=== PATIENT | male | born 1950 | race Caucasian/White ===

== ENCOUNTER 2020-01-07 10:47 | Outpatient (REF) | payer MEDICARE, SELFPAY ==
[2020-01-07 11:01] LABS: MANUAL DIFF FLAG NO
[2020-01-07 11:05] LABS: Basophils Percent Auto 0.7 % (0-2); Eosinophils Absolute Auto 0.3 X10*3/uL (0.0-0.4); Eosinophils Percent Auto 6.1 % (0-4); Hemoglobin 14.2 g/dl (14.0-18.0); Lymphocytes Absolute Auto 1.1 X10*3/uL (1.2-4.9); Lymphocytes Percent Auto 26.8 % (20-40); Mean Corpuscular HGB Conc 33.8 g/dl (31.0-36.0); Mean Corpuscular Hemoglobin 32.3 pg (27.0-33.0); Mean Corpuscular Volume 95.7 fL (80-98); Mean Platelet Volume 8.8 fL (9.4-12.4); Monocytes Absolute Auto 0.5 X10*3/uL (0.1-1.2); Monocytes Percent Auto 11.4 % (2-11); Neutrophils Absolute Auto 2.3 X10*3/uL (2.0-8.3); Platelet Count 178 X10*3/uL (160-400); Red Blood Count 4.39 X10*6/uL (4.60-5.80); Red Cell Distribution Width 13.8 % (11.0-16.0); White Blood Count 4.1 X10*3/uL (4.8-10.8)
[2020-01-07 11:52] LABS: Ferritin 13 ng/mL (20-250)
[2020-01-07 11:57] LABS: Alanine Aminotransferase 12 U/L (0-40); Albumin Level 4.4 g/dL (3.5-5.0); Alkaline Phosphatase 51 U/L (39-117); Anion Gap 10 (12-20); Aspartate Amino Transferase 23 U/L (5-37); Bilirubin Total 0.7 mg/dL (0.0-1.0); Blood Urea Nitrogen 25 mg/dL (9-16); Calcium 8.8 mg/dL (8.4-10.2); Carbon Dioxide 30 mmol/L (22-29); Chloride 104 mmol/L (96-108); Estimated Glomerular Filt Rate > 60; Glucose Random 56 mg/dL (60-115); Iron 138 mcg/dL (45-160); Percent Iron Saturation 36 % (15-50); Potassium 4.3 mmol/l (3.3-5.1); Sodium 140 mmol/L (135-145); Total Iron Binding Capacity 385 mcg/dL (228-428); Total Protein 6.8 g/dL (6.5-8.0); Unsaturated Iron Binding 247 ug/dL
--- NOTE | 2020-01-07 12:06 | MHC.HEMONC ---
Patient seen in therapeutic phlebotomy. glucose 56. Patient called lm to call office back ? if he ate food and how he is feeling. Dr. Cochran made aware of value. Awaiting call back from patient. Labs to be sent to pcp.
== END 2020-01-07 10:48 | disposition home or self-care (01) ==
LOC: HO.BBR 10:47
PROVIDERS: PCP Family Medicine; Visit Provider Internal Medicine Medical Oncology
DX: E83.110 Hereditary hemochromatosis (principal)
CPT/HCPCS: 36415; 80053; 82728; 83540; 85025; 99195

== ENCOUNTER → 2020-03-02 10:42 | Outpatient (BNV) | payer MEDICARE, SELFPAY | PROVIDERS: PCP Family Medicine; Visit Provider Internal Medicine Medical Oncology | DX: E83.119 Hemochromatosis, unspecified (principal) | CPT/HCPCS: 99212; 99213 ==

== ENCOUNTER 2020-03-17 11:08 | Outpatient (REF) | payer MEDICARE, SELFPAY | END 2020-03-17 11:09 | disposition home or self-care (01) | LOC: HO.BBR 11:08 | PROVIDERS: Visit Provider Internal Medicine Medical Oncology | DX: Z13.89 Encounter for screening for other disorder (principal) ==

== ENCOUNTER 2020-03-17 12:08 | Outpatient (REF) | payer SELFPAY ==
[2020-03-17 14:02] LABS: Cholesterol 211 mg/dL
== END 2020-03-17 12:09 | disposition home or self-care (01) ==
LOC: HO.LNC 12:08
PROVIDERS: Visit Provider Pathology Anatomic Pathology & Clinical Pathology
DX: Z13.89 Encounter for screening for other disorder (principal)
CPT/HCPCS: 36415; 82465

== ENCOUNTER 2020-06-02 11:12 | Outpatient (REF) | payer MEDICARE, SELFPAY ==
[2020-06-02 11:37] LABS: MANUAL DIFF FLAG NO
[2020-06-02 11:39] LABS: Basophils Percent Auto 0.5 % (0-2); Eosinophils Absolute Auto 0.2 X10*3/uL (0.0-0.4); Eosinophils Percent Auto 4.6 % (0-4); Hematocrit 41.5 % (42-52); Hemoglobin 13.7 g/dl (14.0-18.0); Imm Gran Abs Auto 0.02 X10*3/uL (0.00-0.03); Imm Gran Pct Auto 0.5 % (0.0-0.4); Lymphocytes Percent Auto 22.1 % (20-40); Mean Corpuscular Hemoglobin 32.5 pg (27.0-33.0); Mean Corpuscular Volume 98.3 fL (80-98); Monocytes Absolute Auto 0.4 X10*3/uL (0.1-1.2); Monocytes Percent Auto 9.4 % (2-11); Neutrophils Absolute Auto 2.7 X10*3/uL (2.0-8.3); Neutrophils Percent Auto 62.9 % (45-73); Platelet Count 174 X10*3/uL (160-400); Red Blood Count 4.22 X10*6/uL (4.60-5.80); Red Cell Distribution Width 13.2 % (11.0-16.0); White Blood Count 4.4 X10*3/uL (4.8-10.8)
[2020-06-02 12:05] LABS: Iron 95 mcg/dL (45-160); Percent Iron Saturation 28 % (15-50); Total Iron Binding Capacity 345 mcg/dL (228-428); Unsaturated Iron Binding 250 ug/dL
[2020-06-02 12:26] LABS: Ferritin 10 ng/mL (20-250)
== END 2020-06-02 11:13 | disposition home or self-care (01) ==
LOC: HO.BBR 11:12
PROVIDERS: PCP Family Medicine; Visit Provider Internal Medicine Medical Oncology
DX: E83.110 Hereditary hemochromatosis (principal)
CPT/HCPCS: 36415; 82728; 83540; 85025

== ENCOUNTER 2020-08-11 11:06 | Outpatient (REF) | payer MEDICARE, SELFPAY ==
[2020-08-11 11:20] LABS: MANUAL DIFF FLAG NO
[2020-08-11 11:24] LABS: Basophils Percent Auto 0.5 % (0-2); Eosinophils Absolute Auto 0.2 X10*3/uL (0.0-0.4); Eosinophils Percent Auto 4.6 % (0-4); Hematocrit 41.6 % (42-52); Hemoglobin 13.8 g/dl (14.0-18.0); Imm Gran Abs Auto 0.01 X10*3/uL (0.00-0.03); Imm Gran Pct Auto 0.2 % (0.0-0.4); Lymphocytes Absolute Auto 1.2 X10*3/uL (1.2-4.9); Lymphocytes Percent Auto 26.4 % (20-40); Mean Corpuscular HGB Conc 33.2 g/dl (31.0-36.0); Mean Corpuscular Hemoglobin 32.7 pg (27.0-33.0); Mean Corpuscular Volume 98.6 fL (80-98); Mean Platelet Volume 9.1 fL (9.4-12.4); Monocytes Absolute Auto 0.5 X10*3/uL (0.1-1.2); Monocytes Percent Auto 11.6 % (2-11); Neutrophils Absolute Auto 2.5 X10*3/uL (2.0-8.3); Neutrophils Percent Auto 56.7 % (45-73); Platelet Count 179 X10*3/uL (160-400); Red Blood Count 4.22 X10*6/uL (4.60-5.80); White Blood Count 4.4 X10*3/uL (4.8-10.8)
[2020-08-11 11:56] LABS: Iron 107 mcg/dL (45-160); Percent Iron Saturation 32 % (15-50); Total Iron Binding Capacity 336 mcg/dL (228-428); Unsaturated Iron Binding 229 ug/dL
[2020-08-11 12:19] LABS: Ferritin 21 ng/mL (20-250)
== END 2020-08-11 11:07 | disposition home or self-care (01) ==
LOC: HO.BBR 11:06
PROVIDERS: Visit Provider Internal Medicine Medical Oncology
DX: E83.110 Hereditary hemochromatosis (principal)
CPT/HCPCS: 36415; 82728; 83540; 85025

== ENCOUNTER 2020-10-20 11:02 | Outpatient (REF) | payer MEDICARE, SELFPAY ==
[2020-10-20 11:20] LABS: MANUAL DIFF FLAG NO
[2020-10-20 11:23] LABS: Basophils Percent Auto 0.4 % (0-2); Eosinophils Absolute Auto 0.2 X10*3/uL (0.0-0.4); Eosinophils Percent Auto 3.6 % (0-4); Hematocrit 39.8 % (42-52); Hemoglobin 13.4 g/dl (14.0-18.0); Imm Gran Abs Auto 0.01 X10*3/uL (0.00-0.03); Imm Gran Pct Auto 0.2 % (0.0-0.4); Lymphocytes Absolute Auto 0.9 X10*3/uL (1.2-4.9); Lymphocytes Percent Auto 18.9 % (20-40); Mean Corpuscular HGB Conc 33.7 g/dl (31.0-36.0); Mean Corpuscular Hemoglobin 32.8 pg (27.0-33.0); Mean Corpuscular Volume 97.5 fL (80-98); Mean Platelet Volume 8.6 fL (9.4-12.4); Monocytes Absolute Auto 0.6 X10*3/uL (0.1-1.2); Monocytes Percent Auto 11.7 % (2-11); Neutrophils Absolute Auto 3.1 X10*3/uL (2.0-8.3); Neutrophils Percent Auto 65.2 % (45-73); Platelet Count 179 X10*3/uL (160-400); Red Blood Count 4.08 X10*6/uL (4.60-5.80); Red Cell Distribution Width 13.2 % (11.0-16.0); White Blood Count 4.7 X10*3/uL (4.8-10.8)
[2020-10-20 12:21] LABS: Ferritin 14 ng/mL (20-250); Iron 62 mcg/dL (45-160); Percent Iron Saturation 19 % (15-50); Total Iron Binding Capacity 330 mcg/dL (228-428); Unsaturated Iron Binding 268 ug/dL
== END 2020-10-20 11:03 | disposition home or self-care (01) ==
LOC: HO.BBR 11:02
PROVIDERS: Visit Provider Internal Medicine Medical Oncology
DX: E83.110 Hereditary hemochromatosis (principal)
CPT/HCPCS: 36415; 82728; 83540; 85025

== ENCOUNTER 2020-12-29 10:35 | Outpatient (REF) | payer MEDICARE, SELFPAY ==
[2020-12-29 10:49] LABS: MANUAL DIFF FLAG NO
[2020-12-29 10:54] LABS: Basophils Percent Auto 0.5 % (0-2); Eosinophils Absolute Auto 0.3 X10*3/uL (0.0-0.4); Eosinophils Percent Auto 7.1 % (0-4); Hematocrit 44.5 % (42-52); Hemoglobin 14.7 g/dl (14.0-18.0); Lymphocytes Percent Auto 26.7 % (20-40); Mean Corpuscular Hemoglobin 31.8 pg (27.0-33.0); Mean Corpuscular Volume 96.3 fL (80-98); Mean Platelet Volume 8.8 fL (9.4-12.4); Monocytes Absolute Auto 0.4 X10*3/uL (0.1-1.2); Monocytes Percent Auto 11.4 % (2-11); Neutrophils Absolute Auto 2.1 X10*3/uL (2.0-8.3); Neutrophils Percent Auto 54.3 % (45-73); Platelet Count 181 X10*3/uL (160-400); Red Blood Count 4.62 X10*6/uL (4.60-5.80); Red Cell Distribution Width 13.1 % (11.0-16.0); White Blood Count 3.8 X10*3/uL (4.8-10.8)
[2020-12-29 11:30] LABS: Iron 88 mcg/dL (45-160); Percent Iron Saturation 22 % (15-50); Total Iron Binding Capacity 407 mcg/dL (228-428); Unsaturated Iron Binding 319 ug/dL
[2020-12-29 11:45] LABS: Ferritin 13 ng/mL (20-250)
== END 2020-12-29 10:36 | disposition home or self-care (01) ==
LOC: HO.BBR 10:35
PROVIDERS: PCP Family Medicine; Visit Provider Internal Medicine Medical Oncology
DX: E83.110 Hereditary hemochromatosis (principal)
CPT/HCPCS: 36415; 82728; 83540; 85025

== ENCOUNTER 2021-03-20 10:58 | Outpatient (REF) | payer MEDICARE, SELFPAY | END 2021-03-20 10:59 | disposition home or self-care (01) | LOC: HO.BBR 10:58 | PROVIDERS: Visit Provider Internal Medicine Medical Oncology | DX: Z13.89 Encounter for screening for other disorder (principal) ==

== ENCOUNTER 2021-05-29 10:58 | Outpatient (REF) | payer MEDICARE, SELFPAY ==
[2021-05-29 12:22] LABS: Iron 97 mcg/dL (45-160); Percent Iron Saturation 27 % (15-50); Total Iron Binding Capacity 365 mcg/dL (228-428); Unsaturated Iron Binding 268 ug/dL
[2021-05-29 12:45] LABS: Ferritin 17 ng/mL (20-250)
== END 2021-05-29 10:59 | disposition home or self-care (01) ==
LOC: HO.BBR 10:58
PROVIDERS: Visit Provider Internal Medicine Medical Oncology
DX: E83.110 Hereditary hemochromatosis (principal)
CPT/HCPCS: 36415; 82728; 83540

== ENCOUNTER 2021-08-07 11:09 | Outpatient (REF) | payer MEDICARE, SELFPAY ==
[2021-08-07 12:54] LABS: Iron 88 mcg/dL (45-160); Percent Iron Saturation 25 % (15-50); Total Iron Binding Capacity 349 mcg/dL (228-428); Unsaturated Iron Binding 261 ug/dL
[2021-08-07 13:14] LABS: Ferritin 21 ng/mL (20-250)
== END 2021-08-07 11:10 | disposition home or self-care (01) ==
LOC: HO.BBR 11:09
PROVIDERS: Visit Provider Internal Medicine Medical Oncology
DX: E83.110 Hereditary hemochromatosis (principal)
CPT/HCPCS: 36415; 82728; 83540

== ENCOUNTER 2021-10-23 09:58 | Outpatient (REF) | payer MEDICARE, SELFPAY ==
[2021-10-23 13:40] LABS: Iron 160 mcg/dL (45-160); Percent Iron Saturation 45 % (15-50); Total Iron Binding Capacity 359 mcg/dL (228-428); Unsaturated Iron Binding 199 ug/dL
[2021-10-23 14:01] LABS: Ferritin 31 ng/mL (20-250)
== END 2021-10-23 09:59 | disposition home or self-care (01) ==
LOC: HO.BBR 09:58
PROVIDERS: Visit Provider Internal Medicine Medical Oncology
DX: E83.110 Hereditary hemochromatosis (principal)
CPT/HCPCS: 36415; 82728; 83540

== ENCOUNTER 2022-01-09 09:02 | Outpatient (REF) | payer MEDICARE, SELFPAY ==
[2022-01-09 10:54] LABS: Ferritin 27 ng/mL (20-250); Iron 52 mcg/dL (45-160); Percent Iron Saturation 18 % (15-50); Total Iron Binding Capacity 282 mcg/dL (228-428); Unsaturated Iron Binding 230 ug/dL
== END 2022-01-09 09:03 | disposition home or self-care (01) ==
LOC: HO.BBR 09:02
PROVIDERS: Visit Provider Internal Medicine Medical Oncology
DX: E83.110 Hereditary hemochromatosis (principal)
CPT/HCPCS: 36415; 82728; 83540

== ENCOUNTER 2022-03-20 10:03 | Outpatient (REF) | payer MEDICARE, SELFPAY ==
[2022-03-20 10:27] LABS: MANUAL DIFF FLAG NO
[2022-03-20 10:28] LABS: Basophils Percent Auto 0.8 % (0-2); Eosinophils Absolute Auto 0.2 X10*3/uL (0.0-0.4); Eosinophils Percent Auto 5.9 % (0-4); Hematocrit 42.2 % (42.0-52.0); Hemoglobin 14.4 g/dl (14.0-18.0); Imm Gran Abs Auto 0.01 X10*3/uL (0.00-0.03); Imm Gran Pct Auto 0.3 % (0.0-0.4); Lymphocytes Absolute Auto 0.9 X10*3/uL (1.2-4.9); Lymphocytes Percent Auto 24.5 % (20-40); Mean Corpuscular HGB Conc 34.1 g/dl (31.0-36.0); Mean Corpuscular Hemoglobin 31.8 pg (27.0-33.0); Mean Corpuscular Volume 93.2 fL (80.0-98.0); Mean Platelet Volume 8.7 fL (9.4-12.4); Monocytes Absolute Auto 0.4 X10*3/uL (0.1-1.2); Neutrophils Absolute Auto 2.2 x10*3/uL (2.0-8.3); Neutrophils Percent Auto 58.5 % (45-73); Platelet Count 166 X10*3/uL (160-400); Red Blood Count 4.53 X10*6/uL (4.60-5.80); Red Cell Distribution Width 13.7 % (11.0-16.0); White Blood Count 3.7 X10*3/uL (4.8-10.8)
[2022-03-20 11:52] LABS: Iron 207 mcg/dL (45-160); Percent Iron Saturation 64 % (15-50); Total Iron Binding Capacity 321 mcg/dL (228-428); Unsaturated Iron Binding 114 ug/dL
[2022-03-20 11:58] LABS: Ferritin 43 ng/mL (20-250)
== END 2022-03-20 10:04 | disposition home or self-care (01) ==
LOC: HO.BBR 10:03
PROVIDERS: PCP Family Medicine; Visit Provider Internal Medicine Medical Oncology
DX: E83.110 Hereditary hemochromatosis (principal)
CPT/HCPCS: 36415; 82728; 83540; 85025

== ENCOUNTER 2022-05-29 09:57 | Outpatient (REF) | payer MEDICARE, SELFPAY ==
[2022-05-29 10:14] LABS: MANUAL DIFF FLAG NO
[2022-05-29 10:19] LABS: Basophils Percent Auto 0.8 % (0-2); Eosinophils Absolute Auto 0.3 X10*3/uL (0.0-0.4); Eosinophils Percent Auto 8.9 % (0-4); Hematocrit 43.2 % (42.0-52.0); Hemoglobin 14.8 g/dl (14.0-18.0); Imm Gran Abs Auto 0.01 X10*3/uL (0.00-0.03); Imm Gran Pct Auto 0.3 % (0.0-0.4); Lymphocytes Absolute Auto 0.8 X10*3/uL (1.2-4.9); Lymphocytes Percent Auto 20.8 % (20-40); Mean Corpuscular HGB Conc 34.3 g/dl (31.0-36.0); Mean Corpuscular Hemoglobin 33.7 pg (27.0-33.0); Mean Corpuscular Volume 98.4 fL (80.0-98.0); Mean Platelet Volume 8.8 fL (9.4-12.4); Monocytes Absolute Auto 0.4 X10*3/uL (0.1-1.2); Monocytes Percent Auto 9.6 % (2-11); Neutrophils Absolute Auto 2.3 x10*3/uL (2.0-8.3); Neutrophils Percent Auto 59.6 % (45-73); Platelet Count 173 X10*3/uL (160-400); Red Blood Count 4.39 X10*6/uL (4.60-5.80); Red Cell Distribution Width 12.7 % (11.0-16.0); White Blood Count 3.8 X10*3/uL (4.8-10.8)
[2022-05-29 11:28] LABS: Iron 175 mcg/dL (45-160); Percent Iron Saturation 53 % (15-50); Total Iron Binding Capacity 328 mcg/dL (228-428); Unsaturated Iron Binding 153 ug/dL
[2022-05-29 11:53] LABS: Ferritin 32 ng/mL (20-250)
== END 2022-05-29 09:58 | disposition home or self-care (01) ==
LOC: HO.BBR 09:57
PROVIDERS: Visit Provider Internal Medicine Medical Oncology
DX: E83.110 Hereditary hemochromatosis (principal)
CPT/HCPCS: 36415; 82728; 83540; 85025

== ENCOUNTER 2022-08-06 09:57 | Outpatient (REF) | payer MEDICARE, SELFPAY ==
[2022-08-06 10:18] LABS: MANUAL DIFF FLAG NO
[2022-08-06 10:20] LABS: Basophils Percent Auto 0.5 % (0-2); Eosinophils Absolute Auto 0.2 X10*3/uL (0.0-0.4); Eosinophils Percent Auto 5.8 % (0-4); Hematocrit 43.2 % (42.0-52.0); Hemoglobin 14.5 g/dl (14.0-18.0); Lymphocytes Percent Auto 24.1 % (20-40); Mean Corpuscular HGB Conc 33.6 g/dl (31.0-36.0); Mean Corpuscular Hemoglobin 33.3 pg (27.0-33.0); Mean Corpuscular Volume 99.1 fL (80.0-98.0); Mean Platelet Volume 8.9 fL (9.4-12.4); Monocytes Absolute Auto 0.4 X10*3/uL (0.1-1.2); Monocytes Percent Auto 10.6 % (2-11); Neutrophils Absolute Auto 2.5 x10*3/uL (2.0-8.3); Platelet Count 162 X10*3/uL (160-400); Red Blood Count 4.36 X10*6/uL (4.60-5.80); Red Cell Distribution Width 12.3 % (11.0-16.0); White Blood Count 4.2 X10*3/uL (4.8-10.8)
[2022-08-06 11:14] LABS: Iron 183 mcg/dL (45-160); Percent Iron Saturation 54 % (15-50); Total Iron Binding Capacity 342 mcg/dL (228-428); Unsaturated Iron Binding 159 ug/dL
[2022-08-06 11:31] LABS: Ferritin 28 ng/mL (20-250)
== END 2022-08-06 09:58 | disposition home or self-care (01) ==
LOC: HO.BBR 09:57
PROVIDERS: Visit Provider Internal Medicine Medical Oncology
DX: E83.110 Hereditary hemochromatosis (principal)
CPT/HCPCS: 36415; 82728; 83540; 85025

== ENCOUNTER 2022-10-15 09:52 | Outpatient (REF) | payer MEDICARE, SELFPAY ==
[2022-10-15 10:34] LABS: MANUAL DIFF FLAG NO
[2022-10-15 10:36] LABS: Basophils Percent Auto 0.6 % (0-2); Eosinophils Absolute Auto 0.2 X10*3/uL (0.0-0.4); Eosinophils Percent Auto 6.6 % (0-4); Hematocrit 39.6 % (42.0-52.0); Hemoglobin 13.3 g/dl (14.0-18.0); Imm Gran Abs Auto 0.01 X10*3/uL (0.00-0.03); Imm Gran Pct Auto 0.3 % (0.0-0.4); Lymphocytes Percent Auto 27.9 % (20-40); Mean Corpuscular HGB Conc 33.6 g/dl (31.0-36.0); Mean Corpuscular Hemoglobin 33.3 pg (27.0-33.0); Mean Platelet Volume 8.8 fL (9.4-12.4); Monocytes Absolute Auto 0.3 X10*3/uL (0.1-1.2); Monocytes Percent Auto 9.8 % (2-11); Neutrophils Absolute Auto 1.9 x10*3/uL (2.0-8.3); Neutrophils Percent Auto 54.8 % (45-73); Platelet Count 165 X10*3/uL (160-400); Red Cell Distribution Width 13.2 % (11.0-16.0); White Blood Count 3.5 X10*3/uL (4.8-10.8)
[2022-10-15 11:23] LABS: Iron 192 mcg/dL (45-160); Percent Iron Saturation 61 % (15-50); Total Iron Binding Capacity 316 mcg/dL (228-428); Unsaturated Iron Binding 124 ug/dL
[2022-10-15 11:41] LABS: Ferritin 20 ng/mL (20-250)
== END 2022-10-15 09:53 | disposition home or self-care (01) ==
LOC: HO.BBR 09:52
PROVIDERS: Visit Provider Internal Medicine Medical Oncology
DX: E83.110 Hereditary hemochromatosis (principal)
CPT/HCPCS: 36415; 82728; 83540; 85025

== ENCOUNTER 2022-12-24 09:59 | Outpatient (REF) | payer MEDICARE, SELFPAY ==
[2022-12-24 10:17] LABS: MANUAL DIFF FLAG NO
[2022-12-24 10:20] LABS: Basophils Percent Auto 0.5 % (0-2); Eosinophils Absolute Auto 0.3 X10*3/uL (0.0-0.4); Eosinophils Percent Auto 6.6 % (0-4); Hematocrit 42.7 % (42.0-52.0); Hemoglobin 14.4 g/dl (14.0-18.0); Imm Gran Abs Auto 0.01 X10*3/uL (0.00-0.03); Imm Gran Pct Auto 0.3 % (0.0-0.4); Lymphocytes Absolute Auto 0.9 X10*3/uL (1.2-4.9); Lymphocytes Percent Auto 23.3 % (20-40); Mean Corpuscular HGB Conc 33.7 g/dl (31.0-36.0); Mean Corpuscular Hemoglobin 32.9 pg (27.0-33.0); Mean Corpuscular Volume 97.5 fL (80.0-98.0); Mean Platelet Volume 8.7 fL (9.4-12.4); Monocytes Absolute Auto 0.4 X10*3/uL (0.1-1.2); Monocytes Percent Auto 10.6 % (2-11); Neutrophils Absolute Auto 2.2 x10*3/uL (2.0-8.3); Neutrophils Percent Auto 58.7 % (45-73); Platelet Count 169 X10*3/uL (160-400); Red Blood Count 4.38 X10*6/uL (4.60-5.80); Red Cell Distribution Width 13.1 % (11.0-16.0); White Blood Count 3.8 X10*3/uL (4.8-10.8)
[2022-12-24 11:22] LABS: Iron 227 mcg/dL (45-160); Percent Iron Saturation 66 % (15-50); Total Iron Binding Capacity 345 mcg/dL (228-428); Unsaturated Iron Binding 118 ug/dL
[2022-12-24 11:34] LABS: Ferritin 28 ng/mL (20-250)
== END 2022-12-24 10:00 | disposition home or self-care (01) ==
LOC: HO.BBR 09:59
PROVIDERS: Visit Provider Internal Medicine Medical Oncology
DX: E83.110 Hereditary hemochromatosis (principal)
CPT/HCPCS: 36415; 82728; 83540; 85025

== ENCOUNTER 2023-03-06 11:07 | Outpatient (REF) | payer MEDICARE, SELFPAY | END 2023-03-06 11:08 | disposition home or self-care (01) | LOC: HO.BBR 11:07 | PROVIDERS: Visit Provider Internal Medicine Medical Oncology | DX: E83.110 Hereditary hemochromatosis (principal) | CPT/HCPCS: 36415; 82728; 83540 ==

== ENCOUNTER 2023-05-15 10:03 | Outpatient (REF) | payer MEDICARE, SELFPAY ==
[2023-05-15 10:24] LABS: MANUAL DIFF FLAG NO
[2023-05-15 10:28] LABS: Basophils Percent Auto 0.8 % (0-2); Eosinophils Absolute Auto 0.3 X10*3/uL (0.0-0.4); Eosinophils Percent Auto 6.7 % (0-4); Hematocrit 42.1 % (42.0-52.0); Hemoglobin 14.2 g/dl (14.0-18.0); Lymphocytes Absolute Auto 1.1 X10*3/uL (1.2-4.9); Mean Corpuscular HGB Conc 33.7 g/dl (31.0-36.0); Mean Corpuscular Hemoglobin 32.3 pg (27.0-33.0); Mean Corpuscular Volume 95.7 fL (80.0-98.0); Mean Platelet Volume 8.7 fL (9.4-12.4); Monocytes Absolute Auto 0.4 X10*3/uL (0.1-1.2); Monocytes Percent Auto 11.5 % (2-11); Neutrophils Absolute Auto 1.9 x10*3/uL (2.0-8.3); Platelet Count 171 X10*3/uL (160-400); Red Cell Distribution Width 13.4 % (11.0-16.0); White Blood Count 3.7 X10*3/uL (4.8-10.8)
[2023-05-15 11:35] LABS: Ferritin 24 ng/mL (20-250); Iron 206 mcg/dL (45-160); Percent Iron Saturation 61 % (15-50); Total Iron Binding Capacity 339 mcg/dL (228-428); Unsaturated Iron Binding 133 ug/dL
== END 2023-05-15 10:04 | disposition home or self-care (01) ==
LOC: HO.BBR 10:03
PROVIDERS: Visit Provider Internal Medicine Medical Oncology
DX: E83.110 Hereditary hemochromatosis (principal)
CPT/HCPCS: 36415; 82728; 83540; 85025

== ENCOUNTER 2023-07-24 10:02 | Outpatient (REF) | payer MEDICARE, SELFPAY ==
[2023-07-24 10:22] LABS: MANUAL DIFF FLAG NO
[2023-07-24 10:24] LABS: Basophils Percent Auto 0.7 % (0-2); Eosinophils Absolute Auto 0.2 X10*3/uL (0.0-0.4); Eosinophils Percent Auto 4.7 % (0-4); Hemoglobin 13.9 g/dl (14.0-18.0); Imm Gran Abs Auto 0.01 X10*3/uL (0.00-0.03); Imm Gran Pct Auto 0.2 % (0.0-0.4); Lymphocytes Percent Auto 25.7 % (20-40); Mean Corpuscular HGB Conc 33.9 g/dl (31.0-36.0); Mean Corpuscular Hemoglobin 32.9 pg (27.0-33.0); Mean Corpuscular Volume 97.2 fL (80.0-98.0); Mean Platelet Volume 8.7 fL (9.4-12.4); Monocytes Absolute Auto 0.5 X10*3/uL (0.1-1.2); Monocytes Percent Auto 12.3 % (2-11); Neutrophils Absolute Auto 2.3 x10*3/uL (2.0-8.3); Neutrophils Percent Auto 56.4 % (45-73); Platelet Count 185 X10*3/uL (160-400); Red Blood Count 4.22 X10*6/uL (4.60-5.80); Red Cell Distribution Width 13.6 % (11.0-16.0); White Blood Count 4.1 X10*3/uL (4.8-10.8)
[2023-07-24 11:00] LABS: Iron 156 mcg/dL (45-160); Percent Iron Saturation 44 % (15-50); Total Iron Binding Capacity 351 mcg/dL (228-428); Unsaturated Iron Binding 195 ug/dL
[2023-07-24 11:15] LABS: Ferritin 29 ng/mL (20-250)
== END 2023-07-24 10:03 | disposition home or self-care (01) ==
LOC: HO.BBR 10:02
PROVIDERS: Visit Provider Internal Medicine Medical Oncology
DX: E83.110 Hereditary hemochromatosis (principal)
CPT/HCPCS: 36415; 82728; 83540; 85025

== ENCOUNTER 2023-10-06 10:07 | Outpatient (REF) | payer MEDICARE, SELFPAY ==
[2023-10-06 10:20] LABS: MANUAL DIFF FLAG NO
[2023-10-06 10:22] LABS: Basophils Percent Auto 0.7 % (0-2); Eosinophils Absolute Auto 0.2 X10*3/uL (0.0-0.4); Eosinophils Percent Auto 5.6 % (0-4); Hematocrit 41.3 % (42.0-52.0); Hemoglobin 14.2 g/dl (14.0-18.0); Imm Gran Abs Auto 0.01 X10*3/uL (0.00-0.03); Imm Gran Pct Auto 0.2 % (0.0-0.4); Lymphocytes Absolute Auto 0.9 X10*3/uL (1.2-4.9); Lymphocytes Percent Auto 22.4 % (20-40); Mean Corpuscular HGB Conc 34.4 g/dl (31.0-36.0); Mean Corpuscular Hemoglobin 33.2 pg (27.0-33.0); Mean Corpuscular Volume 96.5 fL (80.0-98.0); Mean Platelet Volume 8.3 fL (9.4-12.4); Monocytes Absolute Auto 0.3 X10*3/uL (0.1-1.2); Monocytes Percent Auto 8.3 % (2-11); Neutrophils Absolute Auto 2.6 x10*3/uL (2.0-8.3); Neutrophils Percent Auto 62.8 % (45-73); Platelet Count 152 X10*3/uL (160-400); Red Blood Count 4.28 X10*6/uL (4.60-5.80); Red Cell Distribution Width 13.3 % (11.0-16.0); White Blood Count 4.1 X10*3/uL (4.8-10.8)
[2023-10-06 11:15] LABS: Iron 144 mcg/dL (45-160); Percent Iron Saturation 44 % (15-50); Total Iron Binding Capacity 327 mcg/dL (228-428); Unsaturated Iron Binding 183 ug/dL
[2023-10-06 11:20] LABS: Ferritin 19 ng/mL (20-250)
== END 2023-10-06 10:08 | disposition home or self-care (01) ==
LOC: HO.BBR 10:07
PROVIDERS: Visit Provider Internal Medicine Medical Oncology
DX: E83.110 Hereditary hemochromatosis (principal)
CPT/HCPCS: 36415; 82728; 83540; 85025

== ENCOUNTER 2023-12-02 07:30 | Day surgery (SDC) | payer MEDICARE, SELFPAY ==
[2023-12-02 08:38] VITALS: BP 142/76; PULSE 56; RESP 18; TEMP 36.9; O2SAT 97; BMI 23.4
[2023-12-02] MEDS: Lactated Ringers 1,000 ML 100 ML IVCONT (09:01)
--- NOTE | 2023-12-02 09:50 | P.CONAN_ITS ---
Documented by User: Judy Aiken NP 12/01/23 09:35 HPI - Anesthesia Eval Consult details Narrative: 73yo M for Colonoscopy Hemochromatosis with therapeutic phlebs - last 10/06/23 [facility] Active Problems Active Problems: All Active Problems Hemochromatosis (Acute) Past Medical History Medical History Hemochromatosis associated with compound heterozygous mutation in HFE gene Family History Family History Father COPD (chronic obstructive pulmonary disease) Mother CHF (congestive heart failure) Sister Ovarian cancer Maternal Grandmother Bone cancer Surgical History Surgical History (Updated 12/02/23 @ 08:51 by Gladis Gentile RN) Hx of colonoscopy History of left knee surgery Social History Social History Household Members: Spouse Housing: House Are you a primary field care coordinator to a significant other at home: No Do you presently have visiting nurse or other home services: No Alcohol intake: current Alcohol intake frequency: holidays/special occasions only Alcohol type: wine Patient Tobacco Use Status: Never used Tobacco Have you been hit, kicked, punched, or otherwise hurt by someone within the past year? If so, by whom?: No Are you DNR?: No Advance Directives: No Advance Directives Information Provided: Yes service: No Current occupational status: retired Meds Allergies Allergy/AdvReac Type Severity Reaction Status Date / Time No Known Allergies Allergy Unverified 02/18/23 10:27 [No Known Allergies*] Home Medications ?Medication ?Instructions ?Recorded ?Confirmed ?Last Taken ?Type No Known Home Meds 12/02/23 12/02/23 Unknown History Assessment and Plan Assessment Anesthesia Assessment: Chart Reviewed Documented by User: Kathy Fiore DO 12/02/23 10:24 [facility] Past Medical History Medical History Hemochromatosis associated with compound heterozygous mutation in HFE gene Family History Family History Father COPD (chronic obstructive pulmonary disease) Mother CHF (congestive heart failure) Sister Ovarian cancer Maternal Grandmother Bone cancer Family history of problems with anesthesia: No Surgical History Surgical History (Updated 12/02/23 @ 08:51 by Gladis Gentile RN) Hx of colonoscopy History of left knee surgery History of Problems with Anesthesia: No Social History Social History Household Members: Spouse Housing: House Are you a primary field care coordinator to a significant other at home: No Do you presently have visiting nurse or other home services: No Alcohol intake: current Alcohol intake frequency: holidays/special occasions only Alcohol type: wine Patient Tobacco Use Status: Never used Tobacco Have you been hit, kicked, punched, or otherwise hurt by someone within the past year? If so, by whom?: No Are you DNR?: No Advance Directives: No Advance Directives Information Provided: Yes service: No Current occupational status: retired Meds Allergies Allergy/AdvReac Type Severity Reaction Status Date / Time No Known Allergies Allergy Unverified 02/18/23 10:27 [No Known Allergies*] Home Medications ?Medication ?Instructions ?Recorded ?Confirmed ?Last Taken ?Type No Known Home Meds 12/02/23 12/02/23 Unknown History Exam Exam Date and Time: 12/02/23 0950 Height,Weight and Vital Signs: Height 5 ft 9 in Weight 72.03 kg Vital Signs Temperature 98.5 F 12/02/23 08:38 Pulse Rate 56 12/02/23 08:38 Respiratory Rate 18 12/02/23 08:38 Blood Pressure 142/76 H 12/02/23 08:38 Pulse Oximetry 97 12/02/23 08:38 Oxygen Delivery Method Room Air 12/02/23 08:38 Temperature 98.5 F 12/02/23 08:38 Pulse Rate 56 12/02/23 08:38 Respiratory Rate 18 12/02/23 08:38 Blood Pressure 142/76 H 12/02/23 08:38 Pulse Oximetry 97 12/02/23 08:38 Oxygen Delivery Method Room Air 12/02/23 08:38 Airway Mallampati Class: I TM Dist: >3cm Neck ROM: Full Loose/Missing/Broken Teeth: No (patient denies any loose or broken teeth) Heart: S1S2 Lungs: CTAB Assessment and Plan Assessment Anesthesia Assessment: Anesthesia Plan Discussed and Chart Reviewed Final Anesthetic Review Family History of Problems with Anesthesia: No History of Problems with Anesthesia: No NPO: Yes ASA Class: II Final Preanesthetic Review: No Changes in Pt Med Stat, Meds/Allgs Chart Reviewed, Consent Obtained/Reviewed and Anes Risks/Benef Reviewed Patient Risk: Low Procedure Risk: Low Anesthetic Plan Anesthetic Plan: MAC: and Agree w/ Assess. and Plan Disposition: Standard PACU
--- NOTE | 2023-12-02 09:51 | MHC.SHP ---
Pre-Procedural Eval Section A - 24 Hr Update-Section A only Date of Service: 12/02/23 Section B - Complete if H&P > 30 days Chief Complaint: screening Details of Present Illness: see H&P no changes Relevant Family History (Specify if Yes): No Relevant Social History: None Present Medications: see Short Stay Collaborative assessment Medical History: No relevant PMH History of Previous Operations: No relevant previous surgery Allergies: Allergies Allergy/AdvReac Type Severity Reaction Status Date / Time No Known Allergies Allergy Unverified 02/18/23 10:27 [No Known Allergies*] Review of Systems Sugical H&P ROS: Negative: Constitution, Cardiovascular, Respiratory, Neurological, Psychiatric, Hem-Onc, Allergic/Immunologic, Gastrointestinal, Genitourinary, Musculoskeletal, Integumentary, Endocrine and Eyes/Ears/Nose/Throat Exam Surgical H&P Exam: Normal: HEENT, Normal: Heart, Normal: Lungs, Normal: Extremities, Normal: Abdomen, Normal: Skin and Normal: Neurological Plan Diagnosis/Plan: Unchanged I have reviewed the history and physical and performed a pertinent physical examination on my patient. No changes have occurred unless specified. Time Spent With Patient Time: Total time managing care of this patient today ____ minutes.
[2023-12-02 10:41] VITALS: BP 95/56; PULSE 53; RESP 12; TEMP 36.2; O2SAT 98
[2023-12-02 10:56] VITALS: BP 127/73; PULSE 60; RESP 15; O2SAT 98
--- NOTE | 2023-12-02 11:10 | OP_ITS ---
DATE OF SERVICE: 12/02/2023 SURGEON: Man Friedman MD INDICATIONS: Colon cancer screening and prior history of adenomatous colon polyps. PREOPERATIVE DIAGNOSIS: POSTOPERATIVE DIAGNOSIS: PROCEDURE PERFORMED: Colonoscopy to the terminal ileum with biopsy. ESTIMATED BLOOD LOSS: COMPLICATIONS: ANESTHESIA: Monitored anesthesia care. ASSISTANTS: SPECIMENS: DESCRIPTION OF PROCEDURE: A history and physical was performed. The risks and benefits of the procedure were explained to the patient and informed consent was obtained. The patient was placed in the left lateral decubitus position. A digital rectal exam was performed and was found to be normal. The Olympus pediatric video colonoscope was introduced into the rectum and advanced to the cecum. The cecum was identified by transillumination, palpation, and identification of ileocecal valve. Examination was performed and the scope was removed. He tolerated the procedure well and was returned to recovery area in stable condition. FINDINGS: The terminal ileum was briefly examined and appeared normal. The visualized colonic mucosa was normal. The quality of the prep was good. There were a few scattered diverticula throughout the colon. In the right colon, was a less than 5 mm sessile polyp, which was removed with a biopsy forceps. No other polyps were identified. Retroflexed examination showed internal hemorrhoids. IMPRESSION: Colon polyp. RECOMMENDATION: Follow up the biopsy results. MD ADAM Mejia/DEYANIRA / [id number]
[2023-12-02 11:11] VITALS: BP 125/80; PULSE 54; RESP 16; TEMP 36.3; O2SAT 100
== END 2023-12-02 11:27 | disposition home or self-care (01) ==
PROVIDERS: PCP Family Medicine; Visit Provider Internal Medicine Gastroenterology
PROC: 0DJD8ZZ Inspection of Lower Intestinal Tract, Via Natural or Artificial Opening Endoscopic (ICD-10-PCS; CPT 45378; principal; 2023-12-02 09:00)
DX: Z12.11 Encounter for screening for malignant neoplasm of colon (principal); D12.6 Benign neoplasm of colon, unspecified; K57.30 Diverticulosis of large intestine without perforation or abscess without bleeding; K64.8 Other hemorrhoids; Z86.0101 Personal history of adenomatous and serrated colon polyps
CPT/HCPCS: 45380; 88305; J2704

== ENCOUNTER 2023-12-17 10:57 | Outpatient (REF) | payer MEDICARE, SELFPAY ==
[2023-12-17 11:13] LABS: Basophils Percent Auto 0.8 % (0-2); Eosinophils Absolute Auto 0.2 X10*3/uL (0.0-0.4); Eosinophils Percent Auto 5.6 % (0-4); Hemoglobin 14.5 g/dl (14.0-18.0); Imm Gran Abs Auto 0.01 X10*3/uL (0.00-0.03); Imm Gran Pct Auto 0.3 % (0.0-0.4); Lymphocytes Percent Auto 25.4 % (20-40); MANUAL DIFF FLAG NO; Mean Corpuscular HGB Conc 33.7 g/dl (31.0-36.0); Mean Corpuscular Hemoglobin 32.5 pg (27.0-33.0); Mean Corpuscular Volume 96.4 fL (80.0-98.0); Mean Platelet Volume 8.7 fL (9.4-12.4); Monocytes Absolute Auto 0.5 X10*3/uL (0.1-1.2); Monocytes Percent Auto 12.2 % (2-11); Neutrophils Absolute Auto 2.2 x10*3/uL (2.0-8.3); Neutrophils Percent Auto 55.7 % (45-73); Platelet Count 190 X10*3/uL (160-400); Red Blood Count 4.46 X10*6/uL (4.60-5.80); Red Cell Distribution Width 13.6 % (11.0-16.0); White Blood Count 3.9 X10*3/uL (4.8-10.8)
[2023-12-17 12:31] LABS: Iron 206 mcg/dL (45-160); Percent Iron Saturation 58 % (15-50); Total Iron Binding Capacity 353 mcg/dL (228-428); Unsaturated Iron Binding 147 ug/dL
[2023-12-17 12:47] LABS: Ferritin 26 ng/mL (20-250)
== END 2023-12-17 10:58 | disposition home or self-care (01) ==
LOC: HO.BBR 10:57
PROVIDERS: PCP Family Medicine; Visit Provider Internal Medicine Medical Oncology
DX: E83.110 Hereditary hemochromatosis (principal)
CPT/HCPCS: 36415; 82728; 83540; 85025

== ENCOUNTER 2024-02-27 10:05 | Outpatient (REF) | payer MEDICARE, SELFPAY ==
--- OUTSIDE RECORDS SUMMARY | 2024-02-27 10:09 | XMS_ITS ---
Author Organization [facility] Address [address] [place] [address] Care Team Providers Care Assistant Executive Housekeeper Name Role Phone CARISA ANGELES III Primary Care Provider UnavailMan Villanueva Jr REASON FOR VISIT pathology Encounters Encounter Location Date Provider Diagnosis [facility] [address] [place] [address] 12/11/2023 Man Friedman Jr PLAN OF TREATMENT No Information
--- OUTSIDE RECORDS SUMMARY | 2024-02-27 10:10 | XMS_ITS ---
Author Organization [facility] Address [address] [place] [address] Care Team Providers Care Pile Trimmer Name Role Phone CARISA ANGELES III Primary Care Provider UnavailMan Villanueva Jr [phone] REASON FOR VISIT colon screening Encounters Encounter Location Date Provider Diagnosis [facility] [address] [place] [address] 10/13/2023 Man Friedman Jr PLAN OF TREATMENT No Information
--- OUTSIDE RECORDS SUMMARY | 2024-02-27 10:10 | XMS_ITS | Patient Health Record ---
Author Organization [facility] Address [address] [place] [address] Care Team Providers Care Electrical Manufacturing Technician Name Role Phone CARISA ANGELES III Primary Care Provider Man Cancino Jr Unavailable ALLERGIES No Known Allergies RESULTS Component Value Reference Range Notes Pathology Reviewed date:12/11/2023 11:11:36 AM Interpretation: Performing Lab:[facility], [address] [place] [phone] Notes/Report: REASON FOR REFERRAL No Information MEDICATIONS Medication SIG (Take, Route, Frequency, Duration) Notes Start Date End Date Status Vitamin B12 Active MiraLax (colon prep) 17 GM/SCOOP mixed with Gatorade or Crystal Light Orally begin at 5:00 p.m. the day before the procedure for 1 day 10/09/2023 Active IMMUNIZATIONS Vaccine Route Administration Date Status Comme nts Influenza Unknown 01/06/2018 Administered SOCIAL HISTORY Tobacco Use: Social History Observation Description Date Details (start date - stop date) Never Smoker NA - NA Sex Assigned At : Social History Observation Description Sex Assigned At Unknown Tobacco Use/Smoking Question Answer Notes Patient is a nonsmoker Alcohol Screen Question Answer Notes Did you have a drink contain ing alcohol in the past year? Yes How often did you have a dri nk containing alcohol in the past year? 4 or more times a week (4 points) How many drinks did you have on a typical day when you were drinking in the past year? 1 or 2 drinks (0 point) How often did you have 6 or more drinks on one occasion in the past year? Never (0 point) Points 4 Interpretation Positive PROBLEMS Problem Type ICD Code Onset Dates Problem Status W/U Status Risk SNOMED Code Notes Problem Colon cancer screening (Z12.11) Active confirmed 283121298 Problem Encounter for other preprocedural examination (Z01.818) Active confirmed 411370968 Problem Personal history of colonic polyps (Z86.010) Active confirmed 755528801 VITAL SIGNS Blood pressure diastolic 00 mm Hg 10/09/2023 Height 69 in 10/09/2023 Blood pressure systolic 00 mm Hg 10/09/2023 Weight 151 lbs 10/09/2023 BMI 22.30 kg/m2 10/09/2023 Encounters Encounter Location Date Provider Diagnosis [facility] [address] [place] [phone] 12/02/2023 Man Friedman Jr Colon cancer screening Z12.11 ; Personal history of colonic polyps Z86.010 and Colon polyps K63.5 [facility] [address] [place] [phone] 10/13/2023 Man Friedman Jr [facility] [address] [place] [phone] 10/09/2023 Man Friedman Jr Colon cancer screening Z12.11 and Personal history of colonic polyps Z86.010 [facility] [address] [place] [phone] 12/11/2023 Man Friedman Jr ASSESSMENTS Encounter Date Diagnosis Assessment Notes Treatment Notes Treatment Clinical Notes 12/02/2023 Colon cancer screening (ICD-10 - Z12.11) 12/02/2023 Personal history of colonic polyps (ICD-10 - Z86.010) 10/09/2023 Colon cancer screening (ICD-10 - Z12.11) Colonoscopy material was printed 10/09/2023 Personal history of colonic polyps (ICD-10 - Z86.010) 12/02/2023 Colon polyps (ICD-10 - K63.5) PLAN OF TREATMENT Future Test Test Name Order Date COLONOSCOPY 05/06/2018 COLONOSCOPY 10/09/2023 Insurance Providers Payer Name Payer Address Payer Phone Subscriber Number Group Number Insured Name Patient Relationship to Insured Coverage Start Date Coverage End Date [employer] MEDI COMPLETE (REFERRAL REQUIRED) [address] [address] [place], [place] [phone] [id number] CLOCK, WES Self - patient is the insured MEDICAL (GENERAL) HISTORY Medical History History ICD Code sciatica hemochromatosis Colonoscopy 2019, five-year followup due to personal history of colon polyps. Surgical History Surgery Date(Month/Year) left knee arthroscopy 2020
--- OUTSIDE RECORDS SUMMARY | 2024-02-27 10:10 | XMS_ITS ---
Author Organization [facility] Address [address] [place] [address] Care Team Providers Care Loading Supervisor Name Role Phone CARISA ANGELES III Primary Care Provider UnavailMan Villanueva Jr REASON FOR VISIT screening Encounters Encounter Location Date Provider Diagnosis [facility] [facility] [address] [place] [phone] 12/02/2023 Man Friedman Jr Colon cancer screening Z12.11 ; Personal history of colonic polyps Z86.010 and Colon polyps K63.5 ASSESSMENTS Encounter Date Diagnosis Assessment Notes Treatment Notes Treatment Clinical Notes 12/02/2023 Colon cancer screening (ICD-10 - Z12.11) 12/02/2023 Personal history of colonic polyps (ICD-10 - Z86.010) 12/02/2023 Colon polyps (ICD-10 - K63.5) PLAN OF TREATMENT No Information
== END 2024-02-27 10:06 | disposition home or self-care (01) ==
LOC: HO.BBR 10:05
PROVIDERS: Visit Provider Internal Medicine Medical Oncology
DX: Z13.89 Encounter for screening for other disorder (principal)

== ENCOUNTER 2024-05-07 10:01 | Outpatient (REF) | payer MEDICARE, SELFPAY ==
--- OUTSIDE RECORDS SUMMARY | 2024-05-07 11:11 | XMS_ITS | Patient Health Record ---
Author Organization [facility] Address [address] [place] [address] Care Team Providers Care Toll Ticket Clerk Name Role Phone CARISA ANGELES III Primary Care Provider Man Cancino Jr Unavailable Allergies No Known Allergies Results Component Value Reference Range Notes Pathology Reviewed date:12/11/2023 11:11:36 AM Interpretation: Performing Lab:[facility], [address] [place] [phone] Notes/Report: Name: JulioSarathWes Age/Sex: 73/M : 1950 Unit#: [id number] Attend Dr: Man Friedman MD Re12/02/23 Status : [facility] Location: [facility] Disch: SPEC : [id number] RECD : 12/02/23 STATUS: MARYSOL COOK NUM: [id number] JAY: 12/02/[address] [facility] [address]: Man Friedman MD ENTERED: 12/02/23 SP TYPE: Surgical OTHR DR: Carisa Angeles MD ORDERED: HE Stain/3, Gross Micro L4 Diagnosis Colon, right, polype ctomy: Fragments of sessile serrated lesion/polyp; negative for cytologic dysplasia. Clinical History Pre-Op Dx: Screening Post-Op Dx: Colon polyp Microscopic Description Microscopic sections reviewed. Material Received Polyp right colon Gross Description Received in formalin labeled ?polyp right colon? are 2 fragments of shah-white soft tissue measuring 0.3 and 0. 3 cm in greatest dimension which are wrapped in lens paper and entirely submitted for micros copic examination, 2 pieces in cassette [facility] Copies To: Man Friedman MD [facility] [address] [place] [address] [address] [place], [place] [id number] Carisa Angeles MD [address] [address] Signed (si gnature on file) Kevin Gonzales MD 12/03/23 1352 END OF REPORT Reason For Referral No Information Medications Medication SIG (Take, Route, Frequency, Duration) Notes Start Date End Date Status Vitamin B12 Active MiraLax (colon prep) 17 GM/SCOOP mixed with Gatorade or Crystal Light Orally begin at 5:00 p.m. the day before the procedure for 1 day 10/09/2023 Active Immunizations Vaccine Route Administration Date Status Comme nts Influenza Unknown 01/06/2018 Administered Social History Tobacco Use: Social History Observation Description Date Details (start date - stop date) Never Smoker NA - NA Tobacco Use/Smoking Question Answer Notes Patient is [...] Never (0 point) Points 4 Interpretation Positive Problems Problem Type SNOMED Code ICD Code Onset Dates Problem Status W/U Status Risk Notes Problem 646391646 Colon cancer screening (Z12.11) Active confirmed Problem 601479614 Personal history of colonic polyps (Z86.010) Active confirmed Problem 957743061 Encounter for other preprocedural examination (Z01.818) Active confirmed Vital Signs Blood pressure diastolic 00 mm Hg 10/09/2023 Height 69 in 10/09/2023 Blood pressure systolic 00 mm Hg 10/09/2023 Weight 151 lbs 10/09/2023 BMI 22.30 kg/m2 10/09/2023 Encounters Encounter Location Date Provider Diagnosis [facility] [place] Out[place] [address] [place] [phone] 12/02/2023 Man Friedman Jr Colon cancer screening Z12.11 ; Personal history of colonic polyps Z86.010 and Colon polyps K63.5 [facility] [address] [place] [phone] 10/09/2023 Man Friedman Jr Colon cancer screening Z12.11 and Personal history of colonic polyps Z86.010 [facility] [address] [place] [phone] 12/11/2023 aMn Friedman Jr Assessments Encounter Date Diagnosis (ICD Code) Assessment Notes Treatment Notes Treatment Clinical Notes Section Notes 12/02/2023 Colon cancer screening (ICD-10 - Z12.11) 12/02/2023 Personal history of colonic polyps (ICD-10 - Z86.010) 10/09/2023 Colon cancer screening (ICD-10 - Z12.11) Colonoscopy material was printed We discussed colonoscopy today. We discussed risks and benefits of the procedure today. He understands these and agrees to proceed. This will be scheduled at his convenience. 10/09/2023 Personal history of colonic polyps (ICD-10 - Z86.010) We discussed colonoscopy today. We discussed risks and benefits of the procedure today. He understands these and agrees to proceed. This will be scheduled at his convenience. 12/02/2023 Colon polyps (ICD-10 - K63.5) Plan Of Treatment Future Test Test Name Order Date COLONOSCOPY 05/06/2018 COLONOSCOPY 10/09/2023 Insurance Providers Payer Name Payer Address Payer Phone Subscriber Number Group Number Insured Name Patient Relationship to Insured Coverage Start Date Coverage End Date AARP MEDI COMPLETE (REFERRAL REQUIRED) [address] [address] [place] [address] [phone] [id number] JULIO, WES Self - patient is the insured Medical (General) History Medical History History ICD Code sciatica hemochromatosis Colonoscopy 2018, five-year followup due to personal history of colon polyps. Surgical History Surgery Date(Month/Year) left knee arthroscopy 2020
--- OUTSIDE RECORDS SUMMARY | 2024-05-07 11:12 | XMS_ITS ---
Author Organization [facility] Address [address] [place] [phone] Care Team Providers Care Salt Lifter Name Role Phone CARISA ANGELES III Primary Care Provider Man Cancino Jr REASON FOR VISIT screening Encounters Encounter Location Date Provider Diagnosis [facility] [place] [address] [place] [phone] 12/02/2023 Man Friedman Jr Colon cancer screening [...] Progress Notes * WES KIM LDOB: [birth year] (73 yo M)Acc No.[id number]:12/02/2023 COLON WITH MAC Patient:?SAMMY KIMANDREAS Clements Provider:?Man Friedman MD :1950???Age:73 Y???Sex:Male Filipe e:12/02/2023 Address:[address] [place], [place] Pcp:CARISA ANGELES III Subjective: * Chief Complaints: * ???1. Screening. * Medical History:? Objective: * Vitals:? Assessment: * Assessment: 1.?Colon cancer screening - Z12.11 (Primary)???2.?Personal history of colonic polyps - Z86.010???3.?Colon polyps - K63.5??? Plan: * Treatment: * Procedure Codes:?63160 COLON OSCOPY AND BIOPSY * Preventive Medicine:? ??LUDWIG Screening:?Colonoscopy?Was interval between colonoscopies three years or more??Yes,?Was last colonoscopy performed three or more years ago??Yes.? * * The named appointment provid er may or may not be the originator of this progress note, and it is not deemed complete until electronically signed by the appointment provider. Sign off status: Pending * Provider:?Man Friedman MD Date:?1 Generated for Kitty day/Maria Alejandra/Shaquilleitting on:?05/07/2024 11:12 AM EST
--- OUTSIDE RECORDS SUMMARY | 2024-05-07 11:12 | XMS_ITS ---
Author Organization [facility] Address [address] [place] [phone] Care Team Providers Care Pacs Administrator Name Role Phone CARISA ANGELES III Primary Care Provider Man Cancino Jr [phone] REASON FOR VISIT pathology Encounters Encounter Location Date Provider Diagnosis [facility] [address] [place] [phone] 12/11/2023 Man Friedman Jr Plan Of Treatment No Information Progress Notes * JULIO WES LDOB: [birth year] (73 yo M)Acc No.[id number]:12/11/2023 Patient:?SAMMY KIMANDREAS Clements :1950???Age:73 Y???Sex:Male Address:[address], [place], [address] * true * Date:? Generated for Elinai barb/Maria Alejandra/eTransmitting on:?05/07/2024 11:11 AM EST
--- OUTSIDE RECORDS SUMMARY | 2024-05-07 11:12 | XMS_ITS | Clinical Summary ---
Author Organization [employer] [facility] Address [address] [place] [address] Care Team Providers Care Piano Mover Name Role Phone Zachariah Joiner MD Primary Care Provider Allergies No known active allergies Medications No known medications Active Problems Problem Noted Date Diagnosed Date Hereditary hemochromatosis 10/30/2016 Family History Medical History Relation Name Comments COPD Father Relation Name Status Comments Father Social History Tobacco Use Types Packs/Day Years Used Date Smoking Tobacco: Never Smokeless Tobacco: Never Alcohol Use Standard Drinks/Week Comments No 0 (1 standard drink = 0.6 oz pur e alcohol) Sex and Gender Information Value Date Recorded Sex Assigned at Not on file Gender Identity Not on file Sexual Orientation Not on file Last Filed Vital Signs Vital Sign Reading Time Taken Comments Blood Pressure 129/79 10/30/2016 1:21 PM EDT Pulse 70 10/30/2016 1:21 PM EDT Temperature - - Respiratory Rate - - Oxygen Saturation - - Inhaled Oxygen Concentration - - Weight 71.4 kg (157 lb 6.4 oz) 10/30/2016 1:21 P M EDT Height 175.3 cm (5' 9 ) 10/30/2016 1:21 PM EDT Body Mass Index 23.24 10/30/2016 1:21 PM EDT Plan of Treatment Health Maintenance Due Date Last Done Comments Hepatitis C Screening 1950 COVID-19 Vaccine (#1) 04/19/1952 Depression Screening 1963 Preventative Health Evaluation 10/17/1969 DTap / Tdap / Td (1 - Tdap) 10/17/1970 Colon Cancer Screening (Colonoscopy) 10/17/1996 Shingrix-Zoster Vaccine (1 of 2) 10/17/2001 Fall Risk Assessment 10/17/2016 Pneumococcal Vaccine (1 of 1 - PCV) 10/17/2016 Influenza Vaccine (#1) 2023 RSV Adult > 60+ Yrs or Pregn ant (1 - 1-dose 75+ series) 10/17/2026 Hepatitis B Vaccines Aged Out No long er eligible based on patient's age to complete this topic RSV Ped < 20 months Aged Out No longe r eligible based on patient's age to complete this topic Care Teams Piano Mover Relationship Specialty Start Date End Date Zachariah Joiner MD PCP - General Internal Medicine 01/20/17
--- OUTSIDE RECORDS SUMMARY | 2024-05-07 11:12 | XMS_ITS ---
Author Organization [facility] Address [address] [place] [phone] Care Team Providers Care Architecture Consultant Name Role Phone CARISA ANGELES III Primary Care Provider Man Cancino Jr REASON FOR VISIT colon screening Encounters Encounter Location Date Provider Diagnosis [facility] [address] [place] [phone] 10/13/2023 Man Friedman Jr Plan Of Treatment No Information Progress Notes * WES KIM LDOB: [birth year] (73 yo M)Acc No.[id number]:10/13/2023 Progress Notes Patient:WES LINDO Provider:?Man Friedman MD :1950???Age:72 Y???Sex:Male Filipe e:10/13/2023 Address:[address] , [place], [place] Pcp:CARISA ANGELES III Subjective: * Chief Complaints: * ???1. Colon screening. * Medical History:? Objective: * Vitals:? Assessment: Plan: * Treatment: * * The named appointment provid er may or may not be the originator of this progress note, and it is not deemed complete until electronically signed by the appointment provider. Sign off status: Pending * Provider:?Mna Friedman MD Date:?0 10/13/2023 Generated for Kitty day/Maria Alejandra/eTransmitting on:?05/07/2024 11:11 AM EST
[2024-05-07 12:29] LABS: Iron 130 mcg/dL (45-160); Percent Iron Saturation 40 % (15-50); Total Iron Binding Capacity 328 mcg/dL (228-428); Unsaturated Iron Binding 198 ug/dL
[2024-05-07 12:44] LABS: Ferritin 19 ng/mL (20-250)
== END 2024-05-07 10:02 | disposition home or self-care (01) ==
LOC: HO.BBR 10:01
PROVIDERS: PCP Family Medicine; Visit Provider Internal Medicine Medical Oncology
DX: E83.110 Hereditary hemochromatosis (principal)
CPT/HCPCS: 36415; 82728; 83540

== ENCOUNTER 2024-07-20 10:09 | Outpatient (REF) | payer MEDICARE, SELFPAY ==
--- OUTSIDE RECORDS SUMMARY | 2024-07-20 11:22 | XMS_ITS ---
Author Organization [facility] Address [address] [place] [phone] Care Team Providers Care Graphics Coordinator Name Role Phone CARISA ANGELES III Primary Care Provider Man Cancino Jr REASON FOR VISIT pathology Encounters Encounter Location Date Provider Diagnosis [facility] [address] [place] [phone] 12/11/2023 Man Friedman Jr Plan Of Treatment No Information Progress Notes * JULIO WES LDOB: [birth year] (73 yo M)Acc No.[id number]:12/11/2023 Patient:?SAMMY KIMANDREAS Clements :1950???Age:73 Y???Sex:Male Address:[address], [place], [address] * true * Date:? Generated for Printi barb/Maria Alejandra/eTransmitting on:?07/20/2024 11:21 AM EDT
--- OUTSIDE RECORDS SUMMARY | 2024-07-20 11:22 | XMS_ITS ---
Author Organization [facility] Address [address] [place] [phone] Care Team Providers Care Sdc Teacher Name Role Phone CARISA ANGELES III Primary Care Provider Man Cancino Jr REASON FOR VISIT screening Encounters Encounter Location Date Provider Diagnosis [facility] Out[place] [address] [place] [phone] 12/02/2023 Man Friedman Jr Colon cancer screening [...] WES KIM LDOB: [birth year] (73 yo M)Acc No.[id number]:12/02/2023 COLON WITH MAC Patient:?SAMMY KIMANDREAS Clements Provider:?Man Friedman MD :1950???Age:73 Y???Sex:Male Filipe e:12/02/2023 Address:[address], [place], [place] Pcp:CARISA ANGELES III Subjective: * Chief Complaints: * ???1. Screening. * Medical History:? Objective: * Vitals:? Assessment: * Assessment: 1.?Colon cancer screening - Z12.11 (Primary)???2.?Personal history of colonic polyps - Z86.010???3.?Colon polyps - K63.5??? Plan: * Treatment: * Procedure Codes:?38866 COLON OSCOPY AND BIOPSY * Preventive Medicine:? [...] MD Date:?1 Generated for Kitty day/Maria Alejandra/Shaquilleitting on:?07/20/2024 11:22 AM EDT
--- OUTSIDE RECORDS SUMMARY | 2024-07-20 11:22 | XMS_ITS ---
Author Organization [facility] Address [address] [place] [phone] Care Team Providers Care Compliance Coordinator Name Role Phone CARISA ANGELES III Primary Care Provider Man Cancino Jr REASON FOR VISIT colon screening Encounters Encounter Location Date Provider Diagnosis [facility] [address] [place] [phone] 10/13/2023 Man Friedman Jr Plan Of Treatment No Information Progress Notes * WES KIM LDOB: [birth year] (73 yo M)Acc No.[id number]:10/13/2023 Progress Notes Patient:WES LINDO Provider:?Man Friedman MD :1950???Age:72 Y???Sex:Male Filipe e:10/13/2023 Address:[address] , [place], [place] Pcp:CARISA ANGELES III Subjective: * Chief Complaints: * ???1. Colon screening. * Medical History:? Objective: * Vitals:? Assessment: Plan: * Treatment: * * The named appointment provid er may or may not be the originator of this progress note, and it is not deemed complete until electronically signed by the appointment provider. Sign off status: Pending * Provider:?Man Friedman MD Date:?0 10/13/2023 Generated for Kitty day/Maria Alejandra/eTransmitting on:?07/20/2024 11:21 AM EDT
--- OUTSIDE RECORDS SUMMARY | 2024-07-20 11:22 | XMS_ITS | Clinical Summary ---
Author Organization [employer] [facility] Address [address] [place] [address] Care Team Providers Care Traffic Circuit Engineer Name Role Phone Zachariah Joiner MD Primary [...] age to complete this topic Care Teams Traffic Circuit Engineer Relationship Specialty Start Date End Date Zachariah Joiner MD PCP - General Internal Medicine 01/20/17
--- OUTSIDE RECORDS SUMMARY | 2024-07-20 11:22 | XMS_ITS | Patient Health Record ---
Author Organization [facility] Address [address] [place] [address] Care Team Providers Care Marketing Information Analyst Name Role Phone CARISA ANGELES III Primary Care Provider Man Cancino Jr Unavailable Allergies No Known Allergies Results Component Value Reference Range Notes Pathology Reviewed date:12/11/2023 11:11:36 AM Interpretation: Performing Lab:[facility], [address] [place] [phone] Notes/Report: Name: JulioSarathWes Age/Sex: 73/M : 1950 Unit#: [id number] Attend Dr: Man Friedman MD Re12/02/23 Status : [facility] Location: [facility] Disch: SPEC : [id number] RECD : 12/02/23 STATUS: MARYSOL COOK NUM: [id number] JAY: 12/02/[address] [facility] [address]: Man Friedman MD ENTERED: 12/02/23 SP [...] copic examination, 2 pieces in cassette [facility] Copies To: Man Friedman MD [facility] [address] [place] [address] [address] [place], [place] [phone] Carisa Angeles MD [address] [address] Signed (si gnature on file) Kevin Gonzales [...] Problem Status W/U Status Risk Notes Problem 482890800 Colon cancer screening (Z12.11) Active confirmed Problem 517038775 Personal history of colonic polyps (Z86.010) Active confirmed Problem 945077183 Encounter for other preprocedural examination (Z01.818) Active confirmed Vital Signs Blood pressure diastolic 00 mm Hg 10/09/2023 Height 69 in 10/09/2023 Blood pressure systolic 00 mm Hg 10/09/2023 Weight 151 lbs 10/09/2023 BMI 22.30 kg/m2 10/09/2023 Encounters Encounter Location Date Provider Diagnosis [facility] [place] [address] [place] [phone] 12/02/2023 Man Friedman Jr Colon cancer screening Z12.11 ; Personal history of colonic polyps Z86.010 and Colon polyps K63.5 [facility] [address] [place] [phone] 10/09/2023 Man Friedman Jr Colon cancer screening Z12.11 and Personal history of colonic polyps Z86.010 [facility] [address] [place] [phone] 12/11/2023 Man Friedman Jr Assessments Encounter Date Diagnosis (ICD [...] AARP MEDI COMPLETE (REFERRAL REQUIRED) [address] [address] [place] [id number] JULIO, WES Self - patient is the insured Medical (General) History Medical History History ICD Code sciatica hemochromatosis Colonoscopy 2018, five-year followup due to personal history of colon polyps. Surgical History Surgery Date(Month/Year) left knee arthroscopy 2020
[2024-07-20 11:43] LABS: Iron 108 mcg/dL (45-160); Percent Iron Saturation 32 % (15-50); Total Iron Binding Capacity 339 mcg/dL (228-428); Unsaturated Iron Binding 231 ug/dL
[2024-07-20 12:00] LABS: Ferritin 16 ng/mL (20-250)
== END 2024-07-20 10:10 | disposition home or self-care (01) ==
LOC: HO.BBR 10:09
PROVIDERS: PCP Family Medicine; Visit Provider Internal Medicine Medical Oncology
DX: E83.110 Hereditary hemochromatosis (principal)
CPT/HCPCS: 36415; 82728; 83540

== ENCOUNTER 2024-09-29 10:04 | Outpatient (REF) | payer MEDICARE, SELFPAY ==
--- OUTSIDE RECORDS SUMMARY | 2024-09-29 10:50 | XMS_ITS | Clinical Summary ---
Author Organization [employer] [facility] Address [address] [place] [address] Care Team Providers Care Crop Farm Workers Name Role Phone Zachariah Joiner MD Primary [...] 1 - PCV) 10/17/2016 Influenza Vaccine (#1) 2024 RSV Adult > 60+ Yrs or Pregn ant (1 - 1-dose 75+ series) 10/17/2026 Hepatitis B Vaccines Aged Out No long er eligible based on patient's age to complete this topic RSV Ped < 20 months Aged Out No longe r eligible based on patient's age to complete this topic Care Teams Crop Farm Workers Relationship Specialty Start Date End Date Zachariah Joiner MD PCP - General Internal Medicine 01/20/17
--- OUTSIDE RECORDS SUMMARY | 2024-09-29 10:50 | XMS_ITS | Patient Health Record ---
Author Organization [facility] Address [address] [place] [phone] Care Team Providers Care Marine Engine Machinist Name Role Phone CARISA ANGELES III Primary Care Provider Man Cancino Jr Unavailable [phone] Allergies No Known Allergies Results Component Value Reference Range Notes Pathology Reviewed date:12/11/2023 11:11:36 AM Interpretation: Performing Lab:[facility], [address] [place] [phone] Notes/Report: Reason For Referral No Information Medications Medication [...] Problem Status W/U Status Risk Notes Problem 975046079 Colon cancer screening (Z12.11) Active confirmed Problem 695883131 Personal history of colonic polyps (Z86.010) Active confirmed Problem 578984175 Encounter for other preprocedural examination (Z01.818) Active confirmed Vital Signs Blood pressure diastolic 00 mm Hg 10/09/2023 Height 69 in 10/09/2023 Blood pressure systolic 00 mm Hg 10/09/2023 Weight 151 lbs 10/09/2023 BMI 22.30 kg/m2 10/09/2023 Encounters Encounter Location Date Provider Diagnosis [facility] [place] [address] [place] [phone] 12/02/2023 Man Friedman Jr Colon cancer screening Z12.11 ; Personal history of colonic polyps Z86.010 and Colon polyps K63.5 [facility] [address] [place] [phone] 10/09/2023 Man Friedman Jr Colon cancer screening Z12.11 and Personal history of colonic polyps Z86.010 [facility] [address] [place] [phone] 12/11/2023 Man Friedman Jr Assessments Encounter Date [...] AARP MEDI COMPLETE (REFERRAL REQUIRED) [address] [address] [place] [address] [phone] [id number] JULIO, WES Self - patient is the insured Medical (General) History Medical History History ICD Code sciatica hemochromatosis Colonoscopy 2019, five-year followup due to personal history of colon polyps. Surgical History Surgery Date(Month/Year) left knee arthroscopy 2020
== END 2024-09-29 10:05 | disposition home or self-care (01) ==
LOC: HO.BBR 10:04
PROVIDERS: PCP Family Medicine; Visit Provider Internal Medicine Medical Oncology
DX: Z13.89 Encounter for screening for other disorder (principal)

== ENCOUNTER 2024-10-28 10:17 | Outpatient (REF) | payer MEDICARE, SELFPAY ==
--- OUTSIDE RECORDS SUMMARY | 2023-10-13 09:15 | XMS_ITS ---
Author Organization [facility] Address [address] [place] [address] Care Team Providers Care Labor Employment Associate Name Role Phone CARISA ANGELES III Primary Care Provider Man Cancino Jr REASON FOR VISIT colon screening Encounters Encounter Location Date Provider Diagnosis [facility] [address] [place] [phone] 10/13/2023 Man Friedman Jr Plan Of Treatment No Information Progress Notes * WES KIM LDOB: [birth year] (74 yo M)Acc No.[id number]:10/13/2023 Progress Notes Patient: WES BELTRAN Provider: Radha Friedman MD :1950 A ge:72 Y S ex:Male Date:10/13/2023 Address:[address], [place], [place] Pcp:CARISA ANGELES III Subjective: * Chief Complaints: * 1 . Colon screening. * Medical History: Objective: * Vitals: Assessment: Plan: * Treatment: * * The named appointment provid er may or may not be the originator of this progress note, and it is not deemed complete until electronically signed by the appointment provider. Sign off status: Pending * Provider: Radha Friedman MD Date: 10/13/2023 Generated for Elinai ng/Fadinorag/eTransmitting on: 10/28/2024 11:35 AM EDT
--- OUTSIDE RECORDS SUMMARY | 2023-12-02 05:45 | XMS_ITS ---
Author Organization [facility] Address [address] [place] [phone] Care Team Providers Care Security Software Engineer Name Role Phone CARISA ANGELES III Primary Care Provider Man Cancino Jr REASON FOR VISIT screening Encounters Encounter Location Date Provider Diagnosis [facility] [address] [place] [phone] 12/02/2023 Man Friedman Jr Colon cancer screening [...] JULIO WES LDOB: [birth year] (74 yo M)Acc No.[id number]:12/02/2023 COLON WITH MAC Patient: WES BELTRAN Provider: Radha Friedman MD :1950 A ge:73 Y S ex:Male Date:12/02/2023 Address:[address], [place], [place] Pcp:CARISA ANGELES III Subjective: * Chief Complaints: [...] Pending * Provider: Radha Friedman MD Date: 1 Generated for Kitty day/Maria Alejandra/Shaquilleitting on: 0 10/28/2024 11:35 AM EDT
--- OUTSIDE RECORDS SUMMARY | 2024-10-28 11:35 | XMS_ITS | Patient Health Record ---
Author Organization [facility] Address [address] [place] [phone] Care Team Providers Care Aircraft Avionics Technician Name Role Phone CARISA ANGELES III Primary Care Provider Man Cancino Jr Unavailable Allergies No Known Allergies Results Component Value Reference Range Notes Pathology Reviewed date:12/11/2023 11:11:36 AM Interpretation: Performing Lab:[facility], [address] [place] [phone] Notes/Report: Reason For Referral No Information Medications [...] Problem Status W/U Status Risk Notes Problem 227334501 Colon cancer screening (Z12.11) Active confirmed Problem 574214140 Personal history of colonic polyps (Z86.010) Active confirmed Problem 910458827 Encounter for other preprocedural examination (Z01.818) Active confirmed Encounters Encounter Location Date Provider Diagnosis [facility] [address] [place] [phone] 12/02/2023 Man Friedman Jr Colon cancer screening Z12.11 ; Personal history of colonic polyps Z86.010 and Colon polyps K63.5 [facility] [address] [place] [address] 12/11/2023 Man Friedman Jr Assessments Encounter Date [...] AARP MEDI COMPLETE (REFERRAL REQUIRED) [address] [address] [place], [place] [phone] [id number] WES KIM Self - patient is the insured Medical (General) History Medical History History ICD Code sciatica hemochromatosis Colonoscopy 2018, five-year followup due to personal history of colon polyps. Surgical History Surgery Date(Month/Year) left knee arthroscopy 2020
--- OUTSIDE RECORDS SUMMARY | 2024-10-28 11:35 | XMS_ITS | Clinical Summary ---
Author Organization [facility] Address [address] [place] [address] Care Team Providers Care Bulk Plant Agent Name Role Phone Zachariah Joiner MD Primary [...] age to complete this topic Care Teams Bulk Plant Agent Relationship Specialty Start Date End Date Zachariah Joiner MD PCP - General Internal Medicine 01/20/17
[2024-10-28 12:21] LABS: Ferritin 18 ng/mL (20-250)
== END 2024-10-28 10:18 | disposition home or self-care (01) ==
LOC: HO.BBR 10:17
PROVIDERS: PCP Family Medicine; Visit Provider Internal Medicine Medical Oncology
DX: E83.110 Hereditary hemochromatosis (principal)
CPT/HCPCS: 36415; 82728

== ENCOUNTER 2025-01-06 10:04 | Outpatient (REF) | payer MEDICARE, SELFPAY ==
--- OUTSIDE RECORDS SUMMARY | 2023-10-13 08:15 | XMS_ITS ---
Author Organization [facility] Address [address] [place] [phone] Care Team Providers Care Plant Maintenance Worker Name Role Phone CARISA ANGELES III Primary Care Provider Man aCncino Jr REASON FOR VISIT colon screening Encounters Encounter Location Date Provider Diagnosis [facility] [address] [place] [phone] 10/13/2023 Man Friedman Jr Plan Of Treatment No Information Progress Notes * WES KIM LDOB: [birth year] (74 yo M)Acc No.[id number]:10/13/2023 Progress Notes Patient: WES BELTRAN Provider: Radha Friedman MD :1950 A ge:72 Y S ex:Male Date:10/13/2023 Address:[address], [place], [place] Pcp:CARISA ANGELES III Subjective: * Chief Complaints: * 1 . Colon screening. * Medical History: Objective: * Vitals: Assessment: Plan: * Treatment: * * The named appointment provid er may or may not be the originator of this progress note, and it is not deemed complete until electronically signed by the appointment provider. Sign off status: Pending * Provider: Radha Friedman MD Date: 0 10/13/2023 Generated for Elinai ng/Familagro/eTransmitting on: 1 03/08/2024 11:43 AM EST
--- OUTSIDE RECORDS SUMMARY | 2023-12-02 04:45 | XMS_ITS ---
Author Organization [facility] Address [address] [place] [phone] Care Team Providers Care Manufacturer'S Representative Name Role Phone CARISA ANGELES III Primary Care Provider Man Cancino Jr REASON FOR VISIT screening Encounters Encounter Location Date Provider Diagnosis [facility] [address] [place] [phone] 12/02/2023 Man Friedman Jr Colon cancer screening Z12.11 ; Personal history of colonic polyps Z86.010 and Colon polyps K63.5 Assessments Encounter Date Diagnosis (ICD Code) Assessment Notes Treatment Notes Treatment Clinical Notes Section Notes 12/02/2023 Colon cancer screening (ICD-10 - Z12.11) 12/02/2023 Personal history of colonic polyps (ICD-10 - Z86.010) 12/02/2023 Colon polyps (ICD-10 - K63.5) Plan Of Treatment No Information Progress Notes * JULIO WES LDOB: [birth year] (74 yo M)Acc No.[id number]:12/02/2023 COLON WITH MAC Patient: WES BELTRAN Provider: Radha Friedman MD :1950 A ge:73 Y S ex:Male Date:12/02/2023 Address:[address], [place], [place] Pcp:CARISA ANGELES III Subjective: * Chief Complaints: * 1 . Screening. * Medical History: Objective: * Vitals: Assessment: * Assessment: 1. C olon cancer screening - Z12.11 (Primary) 2 . P ersonal history of colonic polyps - Z86.010 3 . C olon polyps - K63.5 Plan: * Treatment: * Procedure Codes: 4 5380 COLONOSCOPY AND BIOPSY * Preventive Medicine: LUDWIG Screening: C olonoscopy W as interval between colonoscopies three years or more? Y es, W as last colonoscopy performed three or more years ago? Y es. * * The named appointment provid er may or may not be the originator of this progress note, and it is not deemed complete until electronically signed by the appointment provider. Sign off status: Pending * Provider: Radha Friedman MD Date: Generated for Kitty day/Maria Alejandra/Shaquilleitting on: 03/08/2024 11:43 AM EST
--- OUTSIDE RECORDS SUMMARY | 2025-01-06 11:46 | XMS_ITS | Patient Health Record ---
Author Organization [facility] Address [address] [place] [id number] Care Team Providers Care Welding Machine Operator Thermit Name Role Phone CARISA ANGELES III Primary Care Provider Man Cancino Jr Unavailable Allergies No Known Allergies Reason For Referral No Information Medications Medication SIG (Take, Route, Frequency, Duration) Notes Start Date End Date Status Vitamin B12 Active MiraLax (colon prep) 17 GM/SCOOP mixed with Gatorade or Crystal Light Orally begin at 5:00 p.m. the day before the procedure; Duration: 1 day 10/09/2023 Active Immunizations Vaccine Route [...] Problem Status W/U Status Risk Notes Problem Colon cancer screening (997158019) Colon cancer screening (Z12.11) Active confirmed Problem History of polyp of colon (situation) (346763717) Personal history of colonic polyps (Z86.010) Active confirmed Problem Pre-procedure evaluation check (413369421) Encounter for other preprocedural examination (Z01.818) Active confirmed Plan Of Treatment Future Test Test Name Order Date COLONOSCOPY 05/06/2018 COLONOSCOPY 10/09/2023 Insurance Providers Payer Name Payer Address Payer Phone Subscriber Number Group Number Insured Name Patient Relationship to Insured Coverage Start Date Coverage End Date [employer] MEDI COMPLETE (REFERRAL REQUIRED) [address] [address] [place] [address] [id number] WES KIM Self - patient is the insured Medical (General) History Medical History History ICD Code sciatica hemochromatosis Colonoscopy 2018, five-year followup due to personal history of colon polyps. Surgical History Surgery Date(Month/Year) left knee arthroscopy 2020
--- OUTSIDE RECORDS SUMMARY | 2025-01-06 11:46 | XMS_ITS | Clinical Summary ---
Author Organization [facility] Address [address] [place] [address] Care Team Providers Care Payroll Representative Name Role Phone Zachariah Joiner MD Primary [...] age to complete this topic Care Teams Payroll Representative Relationship Specialty Start Date End Date Zachariah Joiner MD PCP - General Internal Medicine 01/20/17
[2025-01-06 12:22] LABS: Iron 118 mcg/dL (45-160); Percent Iron Saturation 36 % (15-50); Total Iron Binding Capacity 329 mcg/dL (228-428); Unsaturated Iron Binding 211 ug/dL
[2025-01-06 12:38] LABS: Ferritin 20 ng/mL (20-250)
== END 2025-01-06 10:05 | disposition home or self-care (01) ==
LOC: HO.BBR 10:04
PROVIDERS: PCP Family Medicine; Visit Provider Internal Medicine Medical Oncology
DX: E83.110 Hereditary hemochromatosis (principal)
CPT/HCPCS: 36415; 82728; 83540